=== PATIENT | male | born 1985 | race Caucasian/White ===

== ENCOUNTER 2019-02-17 20:02 | Emergency (ER) | payer MEDICAID ==
[2019-02-17] MEDS ORDERED: IPRATROPIUM/ALBUTEROL (0.5MG/3MG) NEB INH ONE (20:13)
[2019-02-17] MEDS ORDERED: METHYLPREDNISOLONE PF 125MG/VIAL IVP ONE (20:13)
--- NOTE | 2019-02-17 20:20 | Emergency Department Record ---
History of Present Illness - General Chief Complaint: Shortness of breath Stated Complaint: BEAU Time Seen by Provider: 02/17/19 20:03 Source: Patient, Family Mode of Arrival: Ambulatory Limitations: No limitations - History of Present Illness Initial Comments: 33 yo male presents with cough for one year that has worsened the last last one month. He has a mucous like sputum for a month. He is a smoker. No fever. She feels weak and short of breath at times especially with coughing. He coughed so hard Monday is caused him to pass out. He has pain in the upper abdomen from coughing so much. He denies any prior history of diagnosed heart or lung problems. He saw his PCP on 02-15-19. He was diagnosed with possible reflux and allergies. A CXR was performed then that was "Unremarkable". No calf pain or leg swelling. Dr Sharp is his PCP. No diabetes, hypertension, elevated cholesterol, or family history of premature CAD, PE, premature deaths. He has a long history of GERD as well. He had stopped his PPI long ago. Dr Gonzalez restarted the omeprazole. He denies any significant food intolerances. Some identified foods cause reflux. His last scope was 2 years ago and was "normal" per him. 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 Complaint: Cough, Shortness of breath -: Days(s) (3) Radiation: Other (epigastric) Severity: Mild Quality: Aching Consistency: Intermittent, Getting worse Improves With: Nothing Worsens With: Coughing Context: Smoke/fume exposure (Smoker) Associated Symptoms: Cough Treatments Prior to Arrival: Bronchodilator (Other family members), Other (Singulair) - Related Data Home Medications Medication Instructions Recorded Confirmed Last Taken Montelukast Sodium 10 mg PO DAILY 02/17/19 02/17/19 Unknown Omeprazole 40 mg PO DAILY 02/17/19 02/17/19 Unknown Previous Rx's Medication Instructions Recorded Benzonatate [Tessalon Perle] 100 mg PO Q8HR #20 capsule 02/17/19 Allergies Allergy/AdvReac Type Severity Reaction Status Date / Time No Known Drug Allergies Allergy Verified 06/11/16 17:20 Review of Systems Constitutional: Denies: Chills, Fever, Weakness Eyes: Denies: Eye discharge ENT: Reports: Congestion. Denies: Throat pain Respiratory: Reports: Cough, Dyspnea, Hemoptysis (He has seen blood in his sputum a couple times in the last year. ), Wheezes Cardiovascular: Reports: Dyspnea on exertion, Syncope. Denies: Chest pain, Sukumar a, Palpitations Endocrine: Reports: Fatigue. Denies: Polydipsia, Polyuria Gastrointestinal: Reports: Abdominal pain. Denies: Constipation, Diarrhea, Hematemesis, Hematochezia, Nausea, Vomiting Genitourinary: Denies: Dysuria, Frequency, Hematuria Musculoskeletal: Denies: Arthralgia, Back pain, Myalgia Skin: Denies: Bruising, Change in color, Rash Neurological: Denies: Confusion, Headache Psychiatric: Denies: Anxiety Hematological/Lymphatic: Denies: Anemia, Blood Clots, Easy bleeding, Easy bruis ing, Swollen glands Past Medical History - SOCIAL HISTORY Smoking Status: Current every day smoker Drug Use: None - RESPIRATORY Hx Respiratory Disorders: No - CARDIOVASCULAR Hx Cardio Disorders: No - NEURO Hx Neuro Disorders: No - GI Hx GI Disorders: Yes Hx Reflux: Yes - Hx Genitourinary Disorders: No - ENDOCRINE Hx Endocrine Disorders: No - MUSCULOSKELETAL Hx Musculoskeletal Disorders: No - PSYCH Hx Psych Problems: No - HEMATOLOGY/ONCOLOGY Hx Hematology/Oncology Disorders: No Family Medical History Family Hx Comment (NOT TO BE USED IN PLACE OF ITEMS BELOW): Mom thryroid Hx Cancer: Mother Hx HTN: Father Physical Exam - General General Appearance: Alert, Oriented x3, Cooperative, No acute distress Limitations: No limitations - Head Head exam: Atraumatic, Normal inspection - Eye Eye exam: Normal appearance, PERRL. negative: Conjunctival injection, Scleral icterus - ENT ENT exam: Normal exam, Mucous membranes moist Ear exam: Normal external inspection Nasal Exam: Normal inspection Mouth exam: Normal external inspection - Neck Neck exam: Normal inspection. negative: Lymphadenopathy, Tenderness - Respiratory Respiratory exam: Decreased breath sounds, Wheezes (Mild expiratory). negative: Accessory muscle use, Prolonged expiratory, Rhonchi, Stridor - Cardiovascular Cardiovascular Exam: Regular rate, Normal rhythm, Normal heart sounds - GI/Abdominal GI/Abdominal exam: Soft, Tenderness (Mild epigastric tenderness otherwise very soft benign exam of the abdomen) - Rectal Rectal exam: Deferred - exam: Deferred - Extremities Extremities exam: Normal inspection. negative: Calf tenderness, Pedal edema, Tenderness - Back Back exam: Denies: CVA tenderness (R), CVA tenderness (L) - Neurological Neurological exam: Alert, Oriented X3 - Psychiatric Psychiatric exam: negative: Agitated, Anxious - Skin Skin exam: negative: Abrasion, Cyanosis, Erythema, Mottled Course Vital Signs 02/17/19 20:09 Temperature 98.0 F Pulse Rate [ 95 H Left] Respiratory 20 Rate Blood Pressure 128/84 [Left] Pulse Ox 98 - Reevaluation(s) Reevaluation #1: EKG #1: 20:14 Rate: 84 Rhythm: sinus Bantam: normal Intervals: normal ST segments: normal Prior: None Vitals reviewed No hypoxia or fever Normal HR, Normal oxygen saturations EMR CXR was negative on 02/15/19 02/17/19 20:22 [facility] connect chart reviewed from PCP visit. Vitals were unremarkable. 97% on RA at that visit Given his chronic cough I recommend CTA of the chest with labs No cardiac risk factors, no PE risk factors, No family history of cardiopulmonary disease or SCD. The labs were reviewed No significant changes on the CBC, CMP, D-dimer, Troponin, BNP HEART SCORE 1 with smoking. His story is not consistent with CAD or [place]. No signs of CHF to suggest cardiomyopathy. 02/17/19 21:06 02/17/19 21:35 The CTA was negative for acute process. Limitation of peripheral small vessels due to contrast timing. Normal lungs. The results were discussed with the patient and SO. With negative D-Dimer, no other symptoms of thromboembolic disease very low likelihood of small missed PE. The work up for cause of his one year of cough worsened the last month is not clear. Reflux certainly still on the differential diagnosis. He will be referred to GI. I will add an antitussive as well. Smoking cessation was recommended as well. 02/17/19 21:55 The patient symptoms are not improving. He is constantly cough or spitting up c lear phlegm. I recommend consideration of transfer for at least a consultation from GI to see if endoscopy is warranted. Dr Reyes of [facility] accepts the patient. Medical Decision Making - Lab Data Result diagrams: 02/17/19 20:30 02/17/19 20:30 Disposition Disposition: Transfer Clinical Impression: Cough, Dyspnea GERD (gastroesophageal reflux disease) Qualifiers: Esophagitis presence: with esophagitis Qualified Code(s): K21.0 - Gastro- esophageal reflux disease with esophagitis Disposition: Acute Care Hospital Transfer Transfer To: [facility] Reason For Transfer: GI Accepting Physician: Eric Time Discussed w/Accepting Physician: 21:57 Condition: (1) Good Instructions: Dyspnea (ED) Additional Instructions: Call your doctor for the next available follow up appointment this week to recheck your symptoms Review this ER visit and the tests performed with your family doctor Return to the ER for a recheck if worse, any new concerns or questions Take the prescriptions provided as directed If your symptoms continue consider outpatient pulmonary function tests. You can discuss this with your doctor whether it may be helpful to do You have been referred to GI for your significant reflux Prescriptions: Benzonatate [Tessalon Perle] 100 mg PO Q8HR #20 capsule Referrals: ANGIE DOWNING [DOCTOR OF OSTEOPATH] - [facility] Specialty Clinics [Provider Group] Forms: Patient Portal Access Time of Disposition: 21:57 Quality - Quality Measures Quality Measures: N/A - Blood Pressure Screening Does Patient Have Any of the Following: No Blood Pressure Classification: Pre-Hypertensive BP Reading Systolic Measurement: 128 Diastolic Measurement: 84 Screening for High Blood Pressure: < Pre-Hypertensive BP, F/U Documented > [[id number]] Pre-Hypertensive Follow-up Interventions: Referral to alternative/primary care provider.
[2019-02-17 20:36] LABS: ABSOLUTE NEUTROPHIL COUNT 2.89; BASO % 0.9 % (0-6); EOS % 5.1 % (0-6); GRAN % 50.9 % (47-80); HEMATOCRIT 42.7 % (42.0-52.0); HEMOGLOBIN 14.3 gm/dl (14.0-18.0); LYMPH % 36.2 % (16-45); MEAN CELL VOLUME 89.7 fl (81-97); MEAN CORPUSCULAR HGB CONC 33.5 g/dl (32-36); MONO % 6.9 % (0-9); PLATELET COUNT 266 K/uL (130-400); RED BLOOD COUNT 4.76 M/uL (4.40-5.70); RED CELL DISTRIBUTION WIDTH 12.6 % (11.5-14.5); WHITE BLOOD COUNT W/O DIFF 5.7 K/uL (4.2-12.2)
[2019-02-17 20:44] LABS: BLOOD UREA NITROGEN 9 mg/dL (6-20)
[2019-02-17 20:45] LABS: EST GLOMERULAR FILTRATION RATE > 60 mL/min; TOTAL PROTEIN 6.5 g/dL (6.6-8.7)
[2019-02-17 20:47] LABS: GLUCOSE,RANDOM 107 mg/dL (74-109)
[2019-02-17 20:50] LABS: ALB/GLOB RATIO 1.4 (1.1-1.8); ALBUMIN 3.8 g/dL (4.0-5.0); ALKALINE PHOSPHATASE 75 U/L (40-129); ALT/SGPT 41 U/L (<41); AST/SGOT 29 U/L (10.0-50.0)
[2019-02-17 20:58] LABS: URINE APPEARANCE CLEAR; URINE BILIRUBIN NEGATIVE (NEGATIVE); URINE BLOOD NEGATIVE (NEGATIVE); URINE COLOR YELLOW; URINE GLUCOSE (UA) NEGATIVE (NEGATIVE); URINE KETONE NEGATIVE (NEGATIVE); URINE LEUKOCYTE ESTERASE NEGATIVE (NEGATIVE); URINE NITRITE NEGATIVE (NEGATIVE); URINE PROTEIN NEGATIVE (NEGATIVE); URINE UROBILINOGEN 0.2 E.U./dL (0.20 - 1.00)
[2019-02-17] MEDS ORDERED: BENZONATATE 100 MG CAPSULE PO ONE (21:19)
[2019-02-17] MEDS ORDERED: PANTOPRAZOLE SODIUM IV 40 MG VIAL IVP ONE (21:54)
[2019-02-17] MEDS ORDERED: 0.9 % SODIUM CHLORIDE 1000ML 1,000 ML IV ONE (21:56)
--- NOTE | 2019-02-19 05:59 | CT ANGIOGRAM REPORT ---
DATE: 02/17/2019. EXAM: CT ANGIOGRAM OF THE CHEST WITH CONTRAST. HISTORY: SHORTNESS OF BREATH. COUGH. SYNCOPE. TECHNIQUE: Standard CT angiography of the chest was performed with postprocessing following the bolus administration of 75 mL of Omnipaque 350. Additional coronal and sagittal maximum-intensity projection reformatted images were performed on an independent work station under concurrent supervision. COMPARISON: None. FINDINGS: The contrast bolus is suboptimal. There are no central pulmonary emboli. The evaluation of the small segmental and subsegmental pulmonary arterial branches is severely limited due to the poor contrast bolus. The heart is normal in size. There is no pericardial effusion. The aorta is normal in caliber with no dissection. Calcified mediastinal and right hilar lymph nodes are present. There is no pathologic lymphadenopathy. There are calcified granulomas within the right lower lower lobe. The lungs are otherwise clear. There are no acute infiltrates or effusions. There is no pneumothorax. The upper abdomen is unremarkable. The chest wall and axillary regions are normal. There are no acute osseous abnormalities. IMPRESSION: 1. SUBOPTIMAL CONTRAST BOLUS. THERE IS NO CENTRAL PULMONARY EMBOLUS. 2. NO ACUTE CARDIOPULMONARY PROCESS IDENTIFIED. 3. OLD GRANULOMATOUS DISEASE. Job Number: [id number] [facility]
== END 2019-02-17 22:41 | disposition short-term general hospital (02) ==
LOC: ER 20:02
DX: K21.0 Gastro-esophageal reflux disease with esophagitis (principal); R06.00 Dyspnea, unspecified; R10.13 Epigastric pain; R05 Cough; F17.210 Nicotine dependence, cigarettes, uncomplicated
CPT/HCPCS: 99285 ×2; 96374; 96375; 85025; 80053; 81003; 84484; 85379; 83880; 71275; 94640; 93005; 93010; Q9967; C9113; J2930; J7030